=== PATIENT | male | born 1985 | race Caucasian/White ===

== ENCOUNTER → 2016-12-29 | Outpatient (CLI) | payer OTHER ==
[~2016-12-29] MED LIST: ZFRODT4 SL
--- NOTE | 2016-12-29 10:53 | DIAGNOSTIC IMAGING REPORT ---
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 FLUOROSCOPY TIME: 3.4 minutes. 24 images submitted. FINDINGS: The esophagus is normal in course, caliber, and motility. No hiatus hernia. No gastroesophageal reflux. No gastric ulcerations. The duodenal bulb and duodenal C sweep are within normal limits. IMPRESSION: Normal upper GI series. Electronically signed by: Yared Basurto M.D. 12/29/2016 8:42 AM Dictated Date/Time: 12/29/2016 8:40 AM
== END | disposition home or self-care (01) ==
LOC: C.RAD 07:55
PROVIDERS: ATTEND Internal Medicine Geriatric Medicine
DX: F45.8 Other somatoform disorders (principal)